=== PATIENT | male | born 1965 | race Caucasian/White ===

== ENCOUNTER 2019-05-11 08:06 | Outpatient (CLI) | payer BC ==
--- NOTE | 2019-05-11 11:13 | CT ---
CT ABDOMEN AND PELVIS WITH IV CONTRAST: Oral contrast was given. INDICATION: Abdominal swelling x 6 months. COMPARISON: There are no comparison studies. FINDINGS: Images through the lung bases reveal a small 5 mm nodule in the posterior right lung base, indetermin ate. There are linear atelectatic changes in both lung bases. There is diffuse large volume ascites seen throughout the abdomen and pelvis. 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 The appendix is enlarged measuring up to 2 c m and appendiceal mucinous carcinoma is a consideration. The liver has very irregular margins and is somewhat small. The gallbladder is contracted with evide nce of radiopaque gallstones. No definite ductal dilatation. The spleen has an irregular shape and contour with numerous splenic cysts. The spleen is enlarged. There is evidence of mild portal hypertension with splenic varices in the splenic hilum. Pancreas is unremarkable. Adrenal glands and kidneys unremarkable. Small bowel loops unremarkable. Aorta normal caliber. Osseous structures unremarkable. IMPRESSION: 1. Large volume ascites. 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 2. Scalloping of the liver and spleen is seen. While this could be changes of chronic cirrhosis, th marie findings can also be seen with pseudo myxoma peritonei with omental caking contributing to this s calloping. 3. There is evidence of cholelithiasis. 4. Images through the lung bases show a small indeterminate nodule in the right lung base with bibas ilar atelectasis. POS: [facility]
== END 2019-05-11 08:07 | disposition home or self-care (01) ==
LOC: SCSCT 08:06
PROVIDERS: ATTEND Family Medicine
DX: R18.8 Other ascites (principal); K76.89 Other specified diseases of liver; D73.89 Other diseases of spleen; K80.20 Calculus of gallbladder without cholecystitis without obstruction; J98.11 Atelectasis; K38.8 Other specified diseases of appendix; R91.1 Solitary pulmonary nodule; C18.1 Malignant neoplasm of appendix
CPT/HCPCS: 74177

== ENCOUNTER 2019-05-12 08:07 | Day surgery (SDC) | payer BC ==
[2019-05-12 08:26] LABS: #Eosinphils 0.1 thou/uL (0.0-0.7); #Lymphocytes 0.6 thou/uL (1.20-3.40); #Monocytes 0.8 thou/uL (0.11-0.59); #Neutrophils 4.6 thou/uL (1.40-6.50); %Basophils 0.3 % (0.0-1.0); %Eosinophils 2.2 % (0.0-10.0); %Lymphocytes 9.3 % (21.0-51.0); %Monocytes 13.4 % (0.0-10.0); %Neutrophils 74.8 % (42.0-75.0); Hemoglobin 13.5 g/dL (14.0-18.0); Mean Corpuscular HGB CONC 32.8 g/dL (32.0-36.0); Mean Corpuscular Hemoglobin 26.8 pg (27.0-31.0); Mean Corpuscular Volume 81.8 fL (78.0-98.0); Mean Platelet Volume 5.9 fL (7.4-10.4); Platelet Count 366 thou/uL (130-400); RBC Distribution Width 14.2 % (11.5-14.5); Red Blood Cell (RBC) Count 5.01 mill/uL (4.70-6.10); White Blood Cell (WBC) Count 6.2 thou/uL (4.8-10.8)
[2019-05-12 08:32] LABS: INR-International Normal Ratio 1.2; PTT 36.4 SEC (22.9-36.1); Prothrombin Time 14.8 SEC (12.0-14.7)
--- NOTE | 2019-05-12 09:36 | ULT ---
US Paracentesis with Imaging History: Suspicion of mucinous appendiceal carcinoma. Comparison: CT examination prior day Findings: There is no free fluid within the abdomen. Resolving October the suspicious material throughou t the abdominal cavity. Impression: No free fluid for aspiration. Findings were discussed with the patient at the time of exam.
[2019-05-12 09:48] VITALS: BMI 24.4
== END 2019-05-12 09:35 | disposition home or self-care (01) ==
LOC: ULT 08:07
PROVIDERS: ATTEND Surgery
DX: R18.8 Other ascites (principal); C78.6 Secondary malignant neoplasm of retroperitoneum and peritoneum; Z53.9 Procedure and treatment not carried out, unspecified reason; Z79.899 Other long term (current) drug therapy; Z98.84 Bariatric surgery status
CPT/HCPCS: 36415; 76705; 80053; 80076; 85025; 85610; 85730

== ENCOUNTER 2019-05-12 13:42 | Outpatient (CLI) | payer BC ==
[2019-05-12 15:14] LABS: ALT (SGPT) 9 U/L (8-55); AST (SGOT) 17 U/L (5-34); Albumin 4.1 g/dL (3.5-5.0); Alkaline Phosphatase 121 U/L (40-110); Anion Gap 13 mmol/L (10-20); BUN (Urea Nitrogen) 16 mg/dL (8.4-25.7); Bilirubin, Direct 0.6 mg/dL (0.1-0.3); Bilirubin, Total 1.3 mg/dL (0.2-1.2); Calc. Creatinine Clearance 0 mL/min (70-130); Calcium 9.5 mg/dL (7.8-10.44); Carbon Dioxide 29 mmol/L (22-29); Chloride 102 mmol/L (98-107); Estimated GFR-MDRD 82; Globulin 3.6 g/dL (2.4-3.5); Glucose 98 mg/dL (70-105); Potassium 4.4 mmol/L (3.5-5.1); Protein, Total 7.7 g/dL (6.0-8.3); Sodium 140 mmol/L (136-145)
== END 2019-05-12 13:43 | disposition home or self-care (01) ==
LOC: LABBT 13:42
PROVIDERS: ATTEND Surgery
DX: Z01.812 Encounter for preprocedural laboratory examination (principal); C78.6 Secondary malignant neoplasm of retroperitoneum and peritoneum
CPT/HCPCS: 80053; 80076

== ENCOUNTER 2019-05-15 06:06 | Day surgery (SDC) | payer BC ==
[2019-05-12 14:01] VITALS: BMI 24.4
[2019-05-15] MEDS ORDERED: Fentanyl 100 MCG/2 ML VIAL ONE ×3 (06:29→06:57)
[2019-05-15] MEDS ORDERED: Midazolam HCl 2 mg/2 ml Vial ONE (06:29)
[2019-05-15] MEDS ORDERED: Bupivacaine 0.25% HCL 30 ML VIAL ONE (06:36)
[2019-05-15] MEDS ORDERED: Lidocaine 1% w/Epinephrine 1:100K 20 ML VIAL ONE (06:36)
[2019-05-15] MEDS ORDERED: Ketorolac Tromethamine 30 MG/ML VIAL ONE (10:15)
[2019-05-15] MEDS ORDERED: Rocuronium Bromide 10 MG/ML (10ML VIAL) ONE (10:15)
[2019-05-15] MEDS ORDERED: Dexamethasone 20 MG/5 ML VIAL ONE (10:15)
[2019-05-15] MEDS ORDERED: Lidocaine 1% PF 5 ML VIAL ONE (10:15)
[2019-05-15] MEDS ORDERED: Glycopyrrolate 0.2 MG/ML 5 ML SYRINGE ONE (10:15)
[2019-05-15] MEDS ORDERED: PHENYLEPHRINE-NS 100 MCG/ML 10 ML SYRINGE ONE (10:15)
[2019-05-15] MEDS ORDERED: PROPOFOL 200 MG/20 ML VIAL ONE (10:15)
[2019-05-15] MEDS ORDERED: Ondansetron PF 4 MG/2 ML Vial ONE (10:15)
[2019-05-15] MEDS ORDERED: Promethazine HCl 25 MG/ML VIAL IM PRN (11:26)
[2019-05-15] MEDS ORDERED: Promethazine HCl 25 MG/ML VIAL SLOW IVP PRN (11:26)
[2019-05-15] MEDS ORDERED: Ondansetron HCl/PF 4 MG/2 ML Vial IVP PRN (11:26)
--- NOTE | 2019-05-15 13:53 | OP ---
DATE OF PROCEDURE: 05/15/2019 PREOPERATIVE DIAGNOSIS: Peritoneal carcinomatosis. PROCEDURES PERFORMED: Exploratory laparotomy, evacuation of gelatinous peritoneal fluid, appendectomy, and peritoneal washings. INDICATIONS: A 54-year-old male, who has been having some abdominal distention and pain. CT scan showed what appeared to be ascites and a 2 cm mass in the appendix. An attempt was made at CT-guided drainage, but was too thick to remove. FINDINGS: 5 L of coagulated peritoneal fluid removed, carcinomatosis mass in the pelvis, root of mesentery and liver with a 2 cm mass in the appendix. DESCRIPTION OF PROCEDURE: After informed consent was obtained, the patient was taken to the operating room, given general endotracheal anesthesia. He was placed in supine position. His abdomen was prepped and draped in usual fashion. His abdomen was tense and very distended, we elected not to try the laparoscopic procedure. A right lower quadrant incision was performed, subcu divided sharply. The fascia of the external oblique was incised in direction of its fibers. The internal oblique muscle was spread with clamps. The peritoneum opened transversely with a mcguire of this gelatin out of his abdominal cavity. It had multiple globules. About 100 mL of this was sent to Pathology for cytology. Then, as much as I could get out was scooped out in order to allow exposure. I had to enlarge the opening to be able to get my hand in there and actually see what was going on. The appendix was plastered against the retroperitoneum. I was able to get it dissected off the retroperitoneum utilizing the LigaSure. The mesoappendix was divided with the LigaSure. The base of the appendix was divided utilizing the linear 45 mm blue load stapler. The appendix with the mass was sent to Pathology for further analysis. The abdomen was thoroughly irrigated with saline and as much as the fluid was removed as I could get. Hemostasis assured. The peritoneum closed with a running 3-0 Vicryl. The internal oblique fascia closed with a running 2-0 Vicryl. External oblique fascia closed with a running 2-0 Vicryl. Subcu reapproximated with interrupted 3-0 Vicryl. Skin closed with a running subcuticular 4-0 Rapide. Steri-Strips applied, sterile bandage applied. The patient tolerated the procedure well, transferred to Recovery in good condition. Sponge and needle count verified correct x2. Job ID: [id number]
== END 2019-05-15 11:22 | disposition home or self-care (01) ==
LOC: SDC 06:06
PROVIDERS: ATTEND Surgery
PROC: 0DTJ0ZZ Resection of Appendix, Open Approach (ICD-10-PCS; principal; 2019-05-15)
PROC: 3E1M38Z Irrigation of Peritoneal Cavity using Irrigating Substance, Percutaneous Approach (ICD-10-PCS; 2019-05-15)
DX: C78.6 Secondary malignant neoplasm of retroperitoneum and peritoneum (principal); C80.1 Malignant (primary) neoplasm, unspecified; K38.8 Other specified diseases of appendix
CPT/HCPCS: 88112; 88304; 88305; J0690; J1100; J1885; J2001; J2250; J2405; J2704; J3010; S0020